=== PATIENT | male | born 1960 | race Caucasian/White ===

== ENCOUNTER 2019-08-13 09:09 | Observation (INO) ==
[2019-08-13] MEDS ORDERED: ZOFRAN IV ONE (09:27)
[2019-08-13] MEDS ORDERED: DILAUDID IV ONE (09:27)
--- NOTE | 2019-08-13 09:34 | PROVIDER DOCUMENTATION ---
HPI-Chest Pain - General Chief Complaint: Chest Pain Stated Complaint: CHEST PAIN Time Seen by Provider: 08/13/19 09:12 Source: patient Allergies/Adverse Reactions: Patient Allergies Allergy/AdvReac Type Severity Reaction Status Date / Time Sulfa (Sulfonamide AdvReac Unknown Verified 08/13/19 09:30 Antibiotics) Home Medications: Home Medication List Medication Instructions Recorded Confirmed Last Taken Type NK [No Home Medications] 08/13/19 08/13/19 Unknown History - History of Present Illness-CP Nature of Presenting Problem: 59 y/o WM with hx of smoking and htn c/o sudden lt sided chest pain and SOB that started at work just [employer]. Pt states that his pain is lt sided radiating to lt arm and back. Pt notes that he pain is nearly resolved after aspirin but still has SOB and tachycardia. Location: reports: substernal (and lt sided) Chest Pain Radiation: reports: arms (lt arm), back Quality of Pain: reports: aching Severity in ED: mild Onset/Duration: just prior to arrival Timing: improving Context/Activities at Onset: reports: light activity Modifying Factors: improves with: analgesics Associated Symptoms: reports: shortness of breath Nitro Today/Relief: provided by ED Aspirin Treatment Today: 325 mg x 1 Prior Chest Pain/Cardiac Workup: reports: no prior cardiac workup Similar Symptoms Previously?: No Recently Seen Here or By Another Healthcare Provider: No Review of Systems - Adult - REVIEW OF SYSTEMS - ADULT Constitutional: reports: no symptoms reported, see HPI Eyes: reports: no symptoms reported, see HPI Ears, Nose, Mouth & Throat: reports: no symptoms reported, see HPI Cardiovascular: reports: see HPI, chest pain Respiratory: reports: see HPI, shortness of breath Gastrointestinal: reports: no symptoms reported, see HPI Genitourinary: reports: no symptoms reported, see HPI Musculoskeletal: reports: no symptoms reported, see HPI Integumentary: reports: no symptoms reported, see HPI Neurological: reports: no symptoms reported, see HPI Psychiatric: reports: no symptoms reported, see HPI Endocrine: reports: no symptoms reported, see HPI Hematologic/Lymphatic: reports: no symptoms reported, see HPI Allergic/Immunologic: reports: no symptoms reported, see HPI All Other Systems: Reviewed and Negative Past History - Adult - PAST MEDICAL HISTORY-ADULT Review of Records: reports: Nursing Assessment Review, Medications Reviewed, Social history reviewed & non-contributory. Physical Exam-General - PHYSICAL EXAM-ADULT Initial Vital Signs Reviewed: Yes - CONSTITUTIONAL General Appearance: appears well, alert, no apparent distress - EYES Eyes: PERRL/EOMI - HEAD, EARS, NOSE, MOUTH & THROAT HENMT: normocephalic/atraumatic, moist mucous membranes, normal ENT inspection - NECK Neck: non-tender, full range of motion, supple, normal inspection - RESPIRATORY Respiratory: chest non-tender, lungs clear, normal breath sounds, no pleuratic chest pain, no respiratory distress, no accessory muscle use - CARDIOVASCULAR Cardiovascular: normal peripheral pulses, no edema, no gallop, no JVD, no murmur , tachycardia - GASTROINTESTINAL (ABDOMEN) Abdominal Exam: normal bowel sounds, non tender, soft, no organomegaly, no pulsatile mass - LYMPHATIC Lymphatic: no adenopathy - MUSCULOSKELETAL Back Exam: normal inspection, no CVA tenderness, no vertebral tenderness Extremity: normal range of motion, non-tender, normal gait, normal inspection, no pedal edema, no calf tenderness, normal capillary refill - SKIN Integumentary: normal color, normal turgor - NEUROLOGIC Neurologic: track oiler II-XII nml as tested, grossly normal, no motor/sensory deficits - PSYCHIATRIC Psych/Mental Status: normal mood/affect, normal thought content, normal thought process, oriented x 3 - HEART Score HEART Score: History: Moderately Suspicious HEART Score: ECG: Non-Specific Repolarization Disturbance/LBBB/PM HEART Score: Age: 45-65 Years HEART Score: Risk Factors for Atherosclerotic Disease: 1 or 2 Risk Factors HEART Score: Troponin: < or = Normal Limit Total HEART Score:: 4 Progress - PLAN OF CARE/RESULTS Progress/Plan/Lab Results: Vital Signs - 8 hr 08/13/19 09:16 08/13/19 09:52 08/13/19 10:30 Temperature 98.9 F Pulse Rate 106 H 96 H 91 H Respiratory Rate 18 16 16 Blood Pressure 179/110 156/106 160/98 O2 Sat by Pulse Oximetry 97 95 98 08/13/19 11:10 08/13/19 11:17 Temperature Pulse Rate 94 H 102 H Respiratory Rate 16 17 Blood Pressure 147/95 141/89 O2 Sat by Pulse Oximetry 95 94 L Laboratory Results - last 24 hr 08/13/19 08/13/19 08/13/19 09:37 09:37 09:37 WBC RBC Hgb Hct MCV MCH MCHC RDW Std Deviation Plt Count MPV Immature Gran % (Auto) Neut % (Auto) Lymph % (Auto) [place] % (Auto) Eos % (Auto) Baso % (Auto) Immature Gran # (Auto) Neut # (Auto) Lymph # (Auto) [place] # (Auto) Eos # (Auto) Baso # (Auto) PT INR PTT (Actin FS) D-Dimer, Quantitative < 0.27 Sodium 137 Potassium 4.1 Chloride 100 Carbon Dioxide 23 L Anion Gap 14 BUN 14 Creatinine 1.2 Estimated GFR/1.73 m2 > 60 BUN/Creatinine Ratio 12 Glucose 113 H Calculated Osmolality 275 Calcium 9.3 Total Bilirubin 0.23 AST 24 ALT 25 Alkaline Phosphatase 86 Troponin T High Sens Lyi-I-Lkllwrichrd Pept 7 Total Protein 6.9 Albumin 4.1 Globulin 2.8 Albumin/Globulin Ratio 1.5 08/13/19 08/13/19 08/13/19 09:37 09:37 09:37 WBC 6.48 RBC 4.64 L Hgb 15.5 Hct 44.7 MCV 96.3 MCH 33.4 H MCHC 34.7 RDW Std Deviation 12.6 Plt Count 282 MPV 9.8 Immature Gran % (Auto) 0.5 Neut % (Auto) 50.9 Lymph % (Auto) 33.3 [place] % (Auto) 6.9 Eos % (Auto) 5.6 Baso % (Auto) 2.8 H Immature Gran # (Auto) 0.03 Neut # (Auto) 3.30 Lymph # (Auto) 2.16 [place] # (Auto) 0.45 Eos # (Auto) 0.36 Baso # (Auto) 0.18 PT 12.4 INR 0.92 PTT (Actin FS) 27.9 D-Dimer, Quantitative Sodium Potassium Chloride Carbon Dioxide Anion Gap BUN Creatinine Estimated GFR/1.73 m2 BUN/Creatinine Ratio Glucose Calculated Osmolality Calcium Total Bilirubin AST ALT Alkaline Phosphatase Troponin T High Sens 7 Zhj-L-Pnkzhtkjbzy Pept Total Protein Albumin Globulin Albumin/Globulin Ratio Orders Category Date Time Status Nursing- Obtain EKG ONCE Care 08/13/19 09:24 Active CHEST-1 VIEW [RAD] Stat Exams 08/13/19 09:24 Completed CBC WITH ELECTRONIC DIFF [HEME] Stat Lab 08/13/19 09:37 Completed COMPREHENSIVE METABOLIC PANEL [CHEM] Stat Lab 08/13/19 09:37 Completed D-DIMER [COAG] Stat Lab 08/13/19 09:37 Completed PRO B-NATRIURETIC PEPTIDE Stat Lab 08/13/19 09:37 Completed PT [PROTIME WITH INR] [COAG] Stat Lab 08/13/19 09:37 Completed PTT [COAG] Stat Lab 08/13/19 09:37 Completed TROPONIN T HIGH SENSITIVITY Stat Lab 08/13/19 09:37 Completed Hydromorphone [Dilaudid] Med 08/13/19 09:27 Discontinued 0.5 mg IV NOW ONE Nitroglycerin Sl [Nitroglycerin] Med 08/13/19 09:27 Active 0.4 mg SL Q5M PRN PRN Ondansetron [Zofran] Med 08/13/19 09:27 Discontinued 4 mg IV NOW ONE EKG [EKG] Stat Ther 08/13/19 09:24 Draft Transfer/Admit Order [TRANSFER] Routine Transfer 08/13/19 11:55 Ordered Results discussed with pt who noted that his symptoms resolved with nitro in the ER. Pt agrees with plan to be admitted for further evaluation of chest pain. Result Diagrams: 08/13/19 09:37 08/13/19 09:37 - EKG 1 Time of EKG reading by physician:: 09:17 EKG Read and Signed by:: Sanchez Jones EKG Interpretation (*Must complete 3 of following elements*): Abnormal Rate: 103 Rhythm: nsr [place]: normal (possible lt atrial enlargement) NV Interval: normal ST Wave: normal Departure - Departure Date of Disposition Decision: 08/13/19 Time of Disposition Decision: 12:02 DIAGNOSIS: Chest pain Disposition: ADMITTED INPATIENT 09 Certified Medical Emergency: Emergent Condition: Fair - Critical Care Note This patient required my direct & personal management of CC.: No Attestation - Physician/ CHE Attestation Patient care was provided by Advanced Practice Provider:: No The physician spent face to face time with patient:: Yes Advanced Practice Provider documentation review:: Supervising physician onsite and consulted in the evaluation and care of this patient. The physician did have a face to face encounter with the patient.
--- NOTE | 2019-08-13 09:50 | Diag Imaging Result Doc PS360 ---
EXAM: CHEST-1 VIEW HISTORY: sob, cp TECHNIQUE: Single view COMPARISON: 05/16/2019 FINDINGS: The lungs are well expanded. The heart is not enlarged. The vessels are not distended. There are no infiltrates. No effusion identified. IMPRESSION: Negative exam. Electronically signed by Calvin Yanez 08/13/2019 9:47 AM
[2019-08-13 09:51] LABS: BASO# 0.18 X1000 (0.0-0.2); BASO% 2.8 % (0.0-0.8); EOS# 0.36 X1000 (0.0-0.7); EOS% 5.6 % (0.0-10.0); HEMATOCRIT 44.7 % (42.0-52.0); HEMOGLOBIN 15.5 g/dL (14.0-18.0); IMM GRAN# 0.03 X1000 (0.0-0.04); IMM GRAN% 0.5 % (0.0-0.5); LYMPH# 2.16 X1000 (1.2-3.4); LYMPH% 33.3 % (20.5-51.1); MCH 33.4 PG (27-31); MCHC 34.7 g/dL (33-37); MCV 96.3 FL (81-99); MONO# 0.45 X1000 (0.11-0.59); MONO% 6.9 % (1.7-9.3); MPV 9.8 FL (7.4-10.4); NEUT% 50.9 % (42.2-75.2); PLT 282 X1000 (130-400); RBC 4.64 XMIL (4.7-6.1); RDW 12.6 % (11.5-14.5); WBC 6.48 X1000 (4.8-10.8)
[2019-08-13 10:12] LABS: AGAP 14; ALB/GLOB RATIO 1.5; ALBUMIN 4.1 g/dL (3.5-5.0); ALKALINE PHOSPHATASE 86 U/L (32-122); BUN 14 mg/dL (8-22); CALCIUM 9.3 mg/dL (8.8-10.2); CHLORIDE 100 mmol/L (98-107); COSMO 275; CREATININE 1.2 mg/dL (0.7-1.2); ESTIMATED GFR > 60; GLUCOSE 113 mg/dL (70-104); GOT 24 U/L (10-34); GPT 25 U/L (10-44); POTASSIUM 4.1 mmol/L (3.5-5.1); SODIUM 137 mmol/L (136-145); TCO2 23 mmol/L (25-35); TOTAL BILIRUBIN 0.23 mg/dL (0.20-1.00); TOTAL PROTEIN 6.9 g/dL (6.3-8.3)
--- NOTE | 2019-08-13 10:31 | EKG Report ---
Test Performed on : 08/13/2019 09:17:09 AM Test Reason : sob, cp Blood Pressure : / mmHG Vent. Rate : 103 BPM Atrial Rate : 103 BPM P-R Int : 168 ms QRS Dur : 094 ms QT Int : 342 ms P-R-T Axes : 054 066 066 degrees QTc Int : 448 ms Sinus tachycardia. Possible Left atrial enlargement Borderline ECG When compared with ECG of 16-MAY-2019 13:55, Incomplete right bundle branch block is no longer present Unconfirmed Result
[2019-08-13 10:41] LABS: INR 0.92; PROTIME 12.4 Seconds (11.0-16.0)
[2019-08-13 10:42] LABS: PTT 27.9 Seconds (22.3-41.8)
[2019-08-13] MEDS: NITROGLYCERIN SL PRN ×2 (11:07→11:15)
[2019-08-13] MEDS ORDERED: ZOFRAN IV PRN (12:23)
[2019-08-13] MEDS ORDERED: TYLENOL PO PRN (12:23)
[2019-08-13] MEDS ORDERED: LOVENOX SUBQ SCH (12:23)
--- NOTE | 2019-08-13 14:40 | HISTORY AND PHYSICAL ---
PRIMARY CARE PROVIDER: None. CHIEF COMPLAINT: Chest pain. HISTORY OF PRESENT ILLNESS: Mr. Pedersen is a 59-year-old male who reports a past medical history of hypertension, back pain, tobacco use, Staph infection associated with multiple right hip infections. He reported today around 9 a.m. he was sitting at his desk at work and had sudden onset of left-sided chest pain that radiated to the left side of his chest. It was so intense he was holding his chest. It made his left arm started to tingle. It lasted 1 to 2 minutes. This was noticed by his coworkers. He was given 2 aspirin. He became nauseated and short of breath. There was no associated diaphoresis, dizziness, or palpitations. Nothing made it better or worse. He did report that he was diagnosed here with pleurisy about 3 weeks ago. His first set of troponins were negative. His EKG showed sinus tachycardia with possible left atrial enlargement and his incomplete bundle branch block was no longer present. We will admit him for chest pain rule out. 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 HOME MEDICATIONS: Prte-jrx-copzhdh vitamins, Tylenol PM for back pain. SOCIAL HISTORY: He has been smoking 1 pack per day since 15 years of age. Occasional beer. No illicit drugs or alcohol. Works at [employer]. . FAMILY HISTORY: Mother with hypertension, diabetes, melanoma, liver cancer, and kidney transplant. Father with hypertension. ALLERGIES: Sulfa. PHYSICAL EXAMINATION: VITAL SIGNS: Temperature is 98.9 degrees, heart rate 79, respirations 16, blood pressure 143/94, O2 is 96% on 2 L nasal cannula. GENERAL: Mr. Pedersen is a pleasant 59-year-old male who is sitting up in bed in no acute distress. HEENT: Atraumatic, normocephalic. PERRL. NECK: Supple. Trachea midline. CARDIOVASCULAR: S1, S2 appreciated. No murmurs, gallops, rubs noted. RESPIRATORY: Lung sounds clear bilaterally. GI: Soft, nontender, nondistended. Positive bowel sounds 4 quadrants. EXTREMITIES: Lower extremities negative for edema. NEUROLOGIC: No focal deficits noted. DIAGNOSTIC DATA: Chest x-ray negative exam. EKG sinus tachycardia, possible left atrial enlargement. LABORATORY DATA: White count 6, hemoglobin and hematocrit 15 and 44, platelet count is 282,000. Sodium 137, potassium 4.1, BUN 14, creatinine 1.2, blood glucose is 113, troponin 7, proBNP 7. ASSESSMENT AND PLAN: 1. Chest pain rule out. Continue to trend his cardiac enzymes. Check a lipid profile, Echo. Continue with full-dose aspirin. Healthy heart diet. NPO after midnight. Set him up for a stress test in the morning. Repeat EKG. Nitroglycerin p.r.n. for chest pain. 2. Hypertension. He does not currently take any home medications for this. We will continue to monitor. 3. Chronic back pain, aware. 4. Tobacco use and abuse. Will need continued education on smoking cessation as well as the means to quit. 5. Further recommendations to follow. Physician agrees with evaluation, laboratory and diagnostic data. Dictated by SINTIA Philippe for Arnaldo Ordoñez MD cc: Arnaldo Ordoñez MD MTDD
--- NOTE | 2019-08-13 14:51 | ECHO REPORT ---
ORDER DATE: 08/13/2019 INDICATIONS: Chest pain. FINDINGS: 1. The right atrium appears normal in size. 2. Insufficient data to estimate RV systolic pressure. No tricuspid regurgitation identified. 3. Normal RV size and systolic function. 4. Trace pulmonic insufficiency. 5. Normal left atrial size at 3.4 cm. 6. No mitral valve prolapse. Trace mitral regurgitation. 7. Normal LV size, end-diastolic dimension of 4.1 cm. Normal wall thicknesses with intraventricular septal wall thickness 1.1 cm. Normal LV systolic function. The estimated EF is 60% with normal wall motion. 8. Aortic valve opens well. It is trileaflet. No evidence of stenosis or insufficiency. 9. Aorta appears normal in visualized segments. 10. No pericardial effusion seen. cc: Rafa Anderson MD
--- NOTE | 2019-08-13 16:09 | HISTORY AND PHYSICAL ---
ADDENDUM: The patient is seen and examined by me [id number]. All the laboratory, vital signs and images were reviewed. The patient presented with a chief complaint of chest pain that started this morning, pressure-like, radiated to the left side of the chest and arm, associated with shortness of breath and some dizziness. He does not remember diaphoresis. No nausea, no vomiting. This is the second time that this patient had this kind of episode. Apparently this happened also a month ago. He came to the emergency department and he was discharged from there. Chest x-ray did not show any abnormality, and we did an echocardiogram today that showed an ejection fraction of 60% percent with normal wall motion. The aorta seems to be stable. No evidence of stenosis or insufficiency. There is not enough data to estimate right ventricular systolic pressure and no pericardial effusion has been seen. Initial lab work seems to be stable. Actually, the D-dimer is negative and the troponin has been negative so far. We will repeat it though a couple more times. Vital signs are stable. He seems to be having some hypertension though. Physical exam basically benign. He will be having a stress test done tomorrow because of the nature of the pain, the smoking history of one pack a day for more than 40 years since he was 15-year-old, and high blood pressure, probably. I agree with the rest of the nurse practitioner's assessment and plan. cc: Arnaldo Ordoñez MD
[2019-08-14 06:10] LABS: HEMOGLOBIN A1C 4.8 % (4.8-6.0)
[2019-08-14 06:16] LABS: CREATININE 1.3 mg/dL (0.7-1.2); POTASSIUM 4.3 mmol/L (3.5-5.1)
[2019-08-14 06:30] LABS: CHOLESTEROL 259 mg/dL (0-200); HDL 33 mg/dL (35-55); TRIGLYCERIDES 574 mg/dL (39-160)
--- NOTE | 2019-08-14 06:49 | Diag Imaging Result Doc PS360 ---
CHEST-PORTABLE - 08/14/2019 INDICATION: Chest Pain COMPARISON: 08/13/2019 FINDINGS: The lungs are normally expanded and clear. Heart size and mediastinal contours are normal. No pneumothorax or pleural effusion. IMPRESSION: Negative exam. Electronically signed by Fco Garcia 08/14/2019 6:47 AM
[2019-08-14] MEDS ORDERED: PRILOSEC PO SCH (07:00)
--- NOTE | 2019-08-14 07:21 | EKG Report ---
Test Performed on : 08/14/2019 06:50:24 AM Test Reason : CP Blood Pressure : / mmHG Vent. Rate : 074 BPM Atrial Rate : 074 BPM P-R Int : 168 ms QRS Dur : 092 ms QT Int : 406 ms P-R-T Axes : 035 070 082 degrees QTc Int : 450 ms Normal sinus rhythm. Normal ECG When compared with ECG of 13-AUG-2019 09:17, (Unconfirmed) No significant change was found Confirmed by Zina CRUZ, Senthil Verduzco ([id number]) on 08/15/2019 9:24:41 AM
[2019-08-14] MEDS ORDERED: ASPIRIN PO SCH (09:00)
--- NOTE | 2019-08-14 14:42 | Diag Imaging Result Document ---
PROCEDURE NAME: MYOCARDIAL PERF SCAN, STR/REST - 08/14/2019 STUDY: Exercise sestamibi interpretation. SUMMARY: The patient was administered 12.9 mCi of technetium-99m sestamibi after which resting cardiac images were obtained. The patient was subsequently exercised on a treadmill according to a Zack protocol and exercised for a total of 8 minutes, achieving a maximum workload of stage III and 10.1 METS. With exercise, the heart increased from 78 beats per minute to 142 beats per minute representing 88% of maximal age predicted heart rate. The blood pressure increased from 130/88 to 177/96. With exercise, the patient denied chest discomfort. At peak exercise, the patient was administered 37.0 mCi of technetium-99m sestamibi, after which gated stress cardiac images were obtained. Baseline ECG demonstrated normal sinus rhythm and was within normal limits. With exercise, there were no diagnostic ST-segment changes. SPECT images were reconstructed in the short, horizontal, and vertical long axis. Review of these images demonstrated no scintigraphic evidence of inducible myocardial ischemia or prior infarction. Gated images demonstrate a calculated left ventricular ejection fraction of 74% with symmetrical wall motion/thickening. CONCLUSIONS: 1. Good aerobic capacity for age. Target heart rate achieved. 2. Clinically negative for chest pain. 3. Electrocardiographically negative for exercise-induced myocardial ischemia. 4. Exercise sestamibi images demonstrate no scintigraphic evidence of inducible myocardial ischemia. Normal left ventricular systolic function demonstrated. cc: Santo Cota MD
[2019-08-14 15:13] VITALS: BP 131/90
--- NOTE | 2019-08-14 15:41 | DISCHARGE SUMMARY ---
ADMISSION DATE: 08/13/2019 DISCHARGE DATE: 08/14/2019 DISCHARGE DIAGNOSES: 1. Chest pain, acute coronary syndrome has been ruled out. 2. Possible hypertension, he is not on any medication at home. Blood pressures today have been normal. 3. Chronic back pain, aware. 4. Tobacco use and abuse, aware. 5. Dyslipidemia, high cholesterol and triglyceride, now on treatment. PROCEDURES PERFORMED: 1. Chest x-ray dated 08/13/2019 impression: Negative exam. 2. Echocardiogram dated 08/13/2019 impression: Normal right ventricular size and systolic function. Trace pulmonic insufficiency, trace mitral regurgitation, normal left ventricular size, normal wall thickness with interventricular septal wall thickness of 1.1 cm. Normal left ventricular systolic function. Estimated ejection fraction 60%, with normal wall motion. 3. Chest x-ray dated 08/14/2019 impression: Negative exam. 4. Myocardial perfusion scan dated 08/14/2019 conclusion: Good aerobic capacity for age, target heart rate achieved, clinically negative for chest pain, electrocardiographically negative for exercise induced myocardial ischemia, exercise sestamibi images demonstrate no evidence of inducible myocardial ischemia, normal left ventricular systolic function demonstrated. HOSPITAL COURSE: A 59-year-old male with a possible past medical history of hypertension, back pain, and tobacco use, a staph infection associated with multiple right hip infections. He reported that he reported that yesterday around 9 a.m., he was sitting at his desk at work and had a sudden onset of left-sided chest pain radiating to his left side of the chest and arm. It was so intense that he was holding his chest, lasted 1 or 2 minutes. He was given 2 aspirin and he became nauseated and short of breath. Not associated with diaphoresis, he said he was a little bit dizzy but no palpitations. Nothing made it worse or better. He did report that he was diagnosed with pleurisy about 3 weeks ago. His first set of troponins were negative in the emergency department, but then we repeated 2 more for a total of 3, and they were completely normal. Echocardiogram did not show a strong abnormality, and ejection fraction and right ventricular ejection fraction, left ventricular function and right ventricular function were stable. We did a stress test that basically was negative for any acute coronary disease. He had good aerobic capacity for age and target heart rate was achieved, clinically negative for chest pain, electrocardiographically negative for exercise induced myocardial ischemia. Exercise sestamibi images demonstrate no evidence of inducible myocardial ischemia, normal left ventricular systolic function demonstrated. Since admission, this patient has not been complaining of chest pain or shortness of breath, and actually he did not get any medication for his blood pressure. His blood pressure basically normalized since yesterday night between the 110s and 120s. The patient will be discharged today and follow up with a primary care doctor. Since he does not have a primary care doctor, we will try to find one for him. Also, I want him to follow up with Cardiology Department for the following reasons, he is a smoker and also his triglyceride and cholesterol levels are high, with evidence of also a mild kidney dysfunction. His creatinine is between 1.2 and 1.3. He will start taking Lipitor. I will continue with low dose of aspirin. I talked to him about lifestyle modification and physical activity. PHYSICAL EXAMINATION: Vital Signs: Temperature 98.6 degrees, pulse 79, respiratory rate 22, blood pressure 118/57, oxygen saturation 95% on room air. HEENT: Head normocephalic, no trauma, PERRLA. Neck: Supple. No JVD. No masses. Central trachea. Chest: Clear to auscultation. No wheezing. No rales. Abdomen: Soft, nontender, nondistended. No hepatosplenomegaly. Extremities: No edema, no clubbing, no cyanosis. Neurological: The patient is awake, alert. He is oriented x3. No focal deficits. LABORATORY: Sodium 139, potassium 4.3, chloride 101, bicarbonate 25, BUN 17, creatinine 1.3, glucose 98, calcium 9. Hemoglobin A1c 4.8, triglyceride level 574, cholesterol level 259, and HDL 33. Follow up with a primary care doctor. Currently this patient does not have a primary care doctor, and we will try to find one for him. We are calling at this moment Cece Davis to see if she can see this patient this week or next week. Also we will try to set up an appointment with Cardiology Department to monitor his cardiac function, hyperlipidemia. He also has some risk factors like tobacco abuse and some elevation of the BMI. All this has been explained to the patient. He seems to understand. cc: Arnaldo Ordoñez MD
[2019-08-14] MEDS ORDERED: LIPITOR PO SCH (21:00)
== END 2019-08-14 15:42 | disposition home or self-care (01) ==
LOC: 4N 09:09 → ED 09:09
PROVIDERS: ATTEND Internal Medicine